=== PATIENT | female | born 1970 | race Caucasian/White ===

== ENCOUNTER 2017-06-19 11:33 | Emergency (ER) | payer OTHER ==
[~2017-06-19] VITALS: Ht 157.5 cm; Wt 68.0 kg
[~2017-06-19 11:33] MED LIST: CIPRO500 MG PO; TRAMADOL HCL-AP1 TAB PO
== END 2017-06-19 16:29 | disposition home or self-care (01) ==
LOC: ER 11:33
DX: R00.2 Palpitations (principal); F06.4 Anxiety disorder due to known physiological condition